=== PATIENT | female | born 1985 | race Two or more races ===

== ENCOUNTER 2022-04-17 23:24 | Emergency (ER) | payer SELFPAY ==
[~2022-04-17] VITALS: Ht 149.9 cm; Wt 59.0 kg
[2022-04-18] MEDS ORDERED: SODIUM CHLORIDE 0.9% 1,000 ML IV ONE
[2022-04-18] MEDS ORDERED: ceFAZolin 1GM/50ML 50 ML IV ONE
[2022-04-18] MEDS ORDERED: TETANUS-DIPTH-ACEL PERTUSSIS 0.5ML SYR Tdap IM ONE
[2022-04-18] MEDS ORDERED: ONDANSETRON HCL 4 MG/2 ML VIAL IV ONE
[2022-04-18] MEDS ORDERED: HYDROmorphone HCL 2 MG/ML VL/or syr IV ONE ×3 (04:15→07:00)
[2022-04-18 04:26] LABS: Urine Bacteria FEW /hpf (None Seen); Urine Blood 3+ /uL (Negative); Urine Specific Gravity 1.012 (1.001-1.035); Urine WBC 69 /hpf (0 - 5); Urine WBC Clumps PRESENT /hpf (None Seen)
[2022-04-18] MEDS ORDERED: LIDOCAINE 1% HCL (LOCAL ANESTH.) INJ 20ML MDV ID ONE (06:00)
[2022-04-18 07:05] VITALS: BP 114/75
== END 2022-04-18 05:07 | disposition short-term general hospital (02) ==
LOC: EDBD 23:24 → ER 23:29
DX: S02.85XA Fracture of orbit, unspecified, initial encounter for closed fracture (principal); S01.511A Laceration without foreign body of lip, initial encounter; Y04.8XXA Assault by other bodily force, initial encounter; Y93.89 Activity, other specified; Y92.89 Other specified places as the place of occurrence of the external cause; Y99.8 Other external cause status
CPT/HCPCS: 70450; 70486; 71250; 72125; 74176; 81001; 90471; 90715; 96365; 96375; 96376; 99285; J0690; J1170; J2001; J2405; J7030